=== PATIENT | male | born 1945 | race Caucasian/White ===

== ENCOUNTER → 2016-08-25 | Outpatient (CLI) | payer MEDICARE ==
--- NOTE | 2016-08-25 13:13 | XR ---
EXAMINATION TYPE: XR chest 2V DATE OF EXAM: 08/25/2016 12:54 PM HISTORY: Shortness of breath. COMPARISON: 08/26/2015 TECHNIQUE: Single view of the chest is submitted. FINDINGS: Demonstrated are scattered senescent parenchymal change. There is no evidence for focal infiltrate. The heart is stable. Hilar and mediastinal structures are within normal limits. Degenerative changes are seen of the dorsal spine. IMPRESSION: 1. Chronic changes without evidence for acute pulmonary disease.
== END | disposition home or self-care (01) ==
LOC: RADXRMAIN 12:39
PROVIDERS: ATTEND Family Medicine
DX: R05 Cough (principal)
CPT/HCPCS: 71020

== ENCOUNTER 2018-10-03 01:50 | Emergency (ER) | payer MEDICARE ==
[2018-10-03 02:00] VITALS: BP 163/72; PULSE 68; RESP 18; TEMP 97.8
[2018-10-03] MEDS ORDERED: LIDOCAINE 1%-EPI 1:100,000 20 ML VIAL SQ STA (02:50)
--- NOTE | 2018-10-03 03:00 | ED ---
General Adult HPI - General Chief complaint: Wound/Laceration Stated complaint: Leg wound Time Seen by Provider: 10/03/18 02:20 Source: patient, family, RN notes reviewed, old records reviewed Mode of arrival: ambulatory Limitations: no limitations - History of Present Illness Initial comments: 72-year-old male patient with past history of type 2 diabetes, hypertension, hyperlipidemia, not on any blood thinners. This ED for bleeding of right ankle. Patient reports that he was picking at a scab by a varicose vein. Patient reports that he then began bleeding which was difficult to control. Patient denies any other complaints this time. Patient denies any chest pain, abdominal pain, nausea vomiting or diarrhea. Systemic: Pt denies fatigue, myalgia, fever/chills, rash. Pt denies weakness, night sweats, weight loss. Neuro: Pt denies headache, visual disturbances, syncope or pre-syncope. HEENT: Pt denies ocular discharge or irritation, otalgia, rhinorrhea, pharyngitis or notable lymphadenopathy. Cardiopulmonary: Pt denies chest pain, SOB, heart palpitations, dyspnea on exertion. Abdominal/GI: Pt denies abdominal pain, n/v/d. : Pt denies dysuria, burning w/ urination, frequency/urgency. Denies new onset urinary or bowel incontinence. MSK: Pt denies myalgia, loss of strength or function in extremities. Neuro: Pt denies new onset weakness, paresthesias. - Related Data Home Medications Medication Instructions Recorded Confirmed Aspirin [Adult Low Dose Aspirin EC] 81 mg PO DAILY 02/23/17 04/18/17 Atenolol [Tenormin] 25 mg PO DAILY 02/23/17 04/18/17 Ergocalciferol (Vitamin D2) 50,000 unit PO SUWE 02/23/17 04/18/17 [Vitamin D2] Fenofibrate Nanocrystallized 145 mg PO DAILY 02/23/17 04/18/17 [Fenofibrate] Hydrochlorothiazide [Hydrodiuril] 25 mg PO W/SUPPER 02/23/17 04/18/17 Magnesium Oxide 400 mg PO DAILY 02/23/17 04/18/17 Pravastatin Sodium [Pravachol] 20 mg PO W/SUPPER 02/23/17 04/18/17 amLODIPine BESYLATE/BENAZEPRIL 1 cap PO DAILY 02/23/17 04/18/17 [Lotrel 5-20 mg Capsule] glipiZIDE [Glucotrol] 2.5 mg PO W/SUPPER 02/23/17 04/18/17 metFORMIN HCL 1,000 mg PO W/SUPPER 02/23/17 04/18/17 Allergies Allergy/AdvReac Type Severity Reaction Status Date / Time No Known Allergies Allergy Verified 10/03/18 02:00 Review of Systems ROS Statement: Those systems with pertinent positive or pertinent negative responses have been documented in the HPI. ROS Other: All systems not noted in ROS Statement are negative. Past Medical History Past Medical History: Cancer, Diabetes Mellitus, GERD/Reflux, Hyperlipidemia, Hypertension Additional Past Medical History / Comment(s): varicose veins, "takes long time for food to go down", hx kidney stone, hx skin cancer History of Any Multi-Drug Resistant Organisms: None Reported Past Surgical History: Bariatric Surgery, Hernia Repair, Orthopedic Surgery Additional Past Surgical History / Comment(s): abdominal surgery as , lap band, removal of large kidney stone, skin cancer removed from face, left knee surgery Past Anesthesia/Blood Transfusion Reactions: No Reported Reaction Past Psychological History: No Psychological Hx Reported Smoking Status: Former smoker Past Alcohol Use History: None Reported Past Drug Use History: None Reported - Past Family History Mother Family Medical History: No Reported History General Exam - General Exam Comments Initial Comments: Constitutional: NAD, AOX3, Pt has pleasant affect. HEENT: NC/AT, trachea midline, neck supple, no lymphadenopathy. Posterior pharynx non erythematous, without exudates. External ears appear normal, without discharge. Mucous membranes moist. Eyes PERRLA, EOM intact. There is no scleral icterus. No pallor noted. Cardiopulmonary: RRR, no murmurs, rubs or gallops, no JVD noted. Lungs CTAB in anterior and posterior banuelos. No peripheral edema. Abdominal exam: Abdomen soft and non-distended. Abdomen non-tender to palpation in all 4 quadrants. Bowel sounds active in LLQ. No hepatosplenomegaly. No ecchymosis Neuro: CN II-XII grossly intact. No nuchal rigidity. MSK: Varicose vein bleeding in right medial ankle. Approximated with figure eight suture. No posterior calf tenderness bilaterally, homans sign negative bilaterally. Posterior tibialis and radial pulse +2 bilaterally. Sensation intact in upper and lower extremities. Full active ROM in upper and lower extremities, 5/5 stregnth. Limitations: no limitations Course Vital Signs 10/03/18 01:56 Temperature 97.8 F Pulse Rate 68 Respiratory 18 Rate Blood Pressure 163/72 O2 Sat by Pulse 96 Oximetry Medical Decision Making - Medical Decision Making 72-year-old male patient with past history of type 2 diabetes, hypertension, hyperlipidemia, not on any blood thinners. This ED for bleeding of right ankle. Patient reports that he was picking at a scab by a varicose vein. Patient reports that he then began bleeding which was difficult to control. Patient denies any other complaints this time. Patient denies any chest pain, abdominal pain, nausea vomiting or diarrhea. Pt VSS, afebrile. Physical exam displayed: Varicose vein bleeding in right medial ankle. Approximated with figure eight suture. Patient return in 5-7 days for suture removal. Patient will return to ER if condition worsens in anyway. Case discussed with and pt seen by Dr. Morelos. Disposition Clinical Impression: Laceration Disposition: HOME SELF-CARE Condition: Stable Instructions (If sedation given, give patient instructions): Care For Your Stitches (ED) Additional Instructions: Patient to adhere to previously discussed treatment plan and will take medication(s) as directed. Patient to follow up with PCP in 1-2 days. Patient to return to ED if symptoms do not improve. Please return for suture removal: 5-7 days Please monitor for signs and symptoms of infection including: redness, warmth, drainage, discharge. Please return to ED if these signs or symptoms occur, new signs or symptoms develop or if condition worsens in anyway. Is patient prescribed a controlled substance at d/c from ED?: No Referrals: Spencer Mortensen DO [Primary Care Provider] - 1-2 days
--- NOTE | 2018-10-04 02:50 | CDI ---
Documentation Clarification OP Dear Jaspal CORNEJO, PAC, please do the addendum for laceration procedure.Please include the length and depth of the repair. Thank you, Flor Hoffman [employer]k Plant Agent If you have any question, Please contact staffing manager at [phone] [facility]
--- NOTE | 2018-10-23 18:11 | ED ---
Disposition Clinical Impression: Laceration Disposition: HOME SELF-CARE Condition: Stable Instructions (If sedation given, give patient instructions): Care For Your Stitches (ED) Additional Instructions: Patient to adhere to previously discussed treatment plan and will take medication(s) as directed. Patient to follow up with PCP in 1-2 days. Patient to return to ED if symptoms do not improve. Please return for suture removal: 5-7 days Please monitor for signs and symptoms of infection including: redness, warmth, drainage, discharge. Please return to ED if these signs or symptoms occur, new signs or symptoms develop or if condition worsens in anyway. Is patient prescribed a controlled substance at d/c from ED?: No Referrals: Spencer Mortensen DO [Primary Care Provider] - 1-2 days Procedures - Laceration Laceration #1 Consent Obtained: verbal consent Indication: laceration Site: other (R ankle) Size (cm): 0 (vericose vein ) Description: linear Depth: simple, single layer Anesthetic Used: lidocaine 1% Anesthesia Technique: local infiltration Amount (mls): 2 Pre-repair: irrigated extensively Type of Sutures: nylon Size of Sutures: 5-0 Number of Sutures: 1 Technique: other (figure 8) Patient Tolerated Procedure: well, no complications
== END 2018-10-03 04:17 | disposition home or self-care (01) ==
LOC: EC 01:50
DX: S91.011A Laceration without foreign body, right ankle, initial encounter (principal); E11.9 Type 2 diabetes mellitus without complications; K21.9 Gastro-esophageal reflux disease without esophagitis; E78.5 Hyperlipidemia, unspecified; I10 Essential (primary) hypertension; Z85.828 Personal history of other malignant neoplasm of skin; Z87.891 Personal history of nicotine dependence; Z79.84 Long term (current) use of oral hypoglycemic drugs; Z79.82 Long term (current) use of aspirin; Z79.899 Other long term (current) drug therapy; X58.XXXA Exposure to other specified factors, initial encounter
CPT/HCPCS: 12001; 99283

== ENCOUNTER 2019-02-06 07:53 | Day surgery (SDC) | payer MEDICARE ==
[2019-02-02 10:48] VITALS: BMI 37.3
[~2019-02-06 07:53] MED LIST: ALPRAZolam 0.25 MG TAB PO PRN; ALPRAZolam 0.5 MG TAB PO PRN; ASPIRIN 325 MG TAB PO ONE; ATORVASTATIN 80 MG TAB PO ONE; NITROGLYCERIN SL TABS 0.4 MG TAB SUBLINGUAL PRN; SODIUM CHLORIDE 0.9% 1,000 ML in EMPTY BAG 1 BAG IV ONE
[2019-02-06 08:27] LABS: Glucose,Whole Blood 213 mg/dL (75-99)
[2019-02-06] MEDS ORDERED: SODIUM CHLORIDE 0.9% 1,000 ML IV ONE (08:27)
[2019-02-06 08:34] VITALS: TEMP 97.8
[2019-02-06] MEDS ORDERED: LIDOCAINE 1% INJ 10MG/ML (20 ML MDV) ONE (09:03)
[2019-02-06] MEDS ORDERED: VERAPAMIL 2.5 MG/ML 2 ML AMP ONE (09:04)
[2019-02-06] MEDS ORDERED: HEPARIN SODIUM 1,000 UN/ML (10ML VL) ONE (09:04)
[2019-02-06] MEDS ORDERED: MIDAZOLAM PF (FBP) 2 MG/2 ML VIAL IV ONE (09:20)
[2019-02-06] MEDS ORDERED: LIDOCAINE 1% INJ 10MG/ML (20 ML MDV) SQ ONE (09:24)
[2019-02-06] MEDS: VERAPAMIL SYRINGE (5 MG/10 ML) INTRAARTER ONE ×2 (09:27→09:42)
[2019-02-06] MEDS ORDERED: IOPAMIDOL-370 100ML BTL INJ ONE (09:43)
[2019-02-06 10:03] LABS: Glucose,Whole Blood 163 mg/dL (75-99)
[2019-02-06] MEDS ORDERED: SODIUM CHLORIDE 0.9% 1,000 ML IV SCH (10:30)
[2019-02-06 10:35] VITALS: RESP 16
[2019-02-06 16:30] VITALS: BP 144/65; PULSE 56
[2019-02-06] MEDS ORDERED: PRAVASTATIN SODIUM 20 MG TAB PO SCH (17:30)
[2019-02-06] MEDS ORDERED: glipiZIDE 5 MG TAB PO SCH (17:30)
[2019-02-06] MEDS ORDERED: NON FORMULARY DRUG (Metformin Hcl [Metformin Hcl] 1,000 MG) PO SCH (21:00)
[2019-02-07] MEDS ORDERED: HYDROCHLOROTHIAZIDE 25 MG TAB PO SCH (09:00)
[2019-02-07] MEDS ORDERED: PIOGLITAZONE 30 MG TAB PO SCH (09:00)
[2019-02-07] MEDS ORDERED: ERGOCALCIFEROL 50,000 UNIT CAP PO SCH (09:00)
[2019-02-07] MEDS ORDERED: TAMSULOSIN 0.4 MG CAP.ER.24H PO SCH (09:00)
[2019-02-07] MEDS ORDERED: amLODIPine 5 MG TAB PO SCH (09:00)
[2019-02-07] MEDS ORDERED: ASPIRIN 81 MG PO SCH (09:00)
[2019-02-07] MEDS ORDERED: FENOFIBRATE 160 MG TAB PO SCH (09:00)
[2019-02-07] MEDS ORDERED: LISINOPRIL 20 MG TAB PO SCH (09:00)
[2019-02-08] MEDS ORDERED: MAGNESIUM OXIDE 400 MG TAB PO SCH (09:00)
--- NOTE | 2019-02-14 12:30 | CC ---
CARDIAC CATHETERIZATION REPORT DATE OF SERVICE: 02/06/2019 PROCEDURE: Coronary angiography. PERFORMED BY: Dr. Freddy Akins SEDATION: Moderate conscious sedation time was 19 minutes. Patient was administered Versed. Oxygen saturation, hemodynamics and EKG were monitored closely. CLINICAL INFORMATION: Mr. Festus Lopez is a 73-year-old gentleman, history of obesity, hypertension, type 2 diabetes, hyperlipidemia with recent abnormal stress test. He was advised cardiac catheterization after due discussion regarding risks, benefits, and options. PROCEDURE NOTE: Under local anesthesia and strict aseptic precautions, a 6-Mohawk introducer was placed in the right radial artery. Using JR4 and JL3.5 catheters, I performed selective coronary angiography. I made an attempt with a pigtail catheter to cross the aortic valve but because of some tortuosity, it was unsuccessful. Therefore, the catheter and sheath were taken out and TR band applied as per protocol and patient was sent to the room in a stable condition. Saturation in the fingers of the right hand was more than 90% at the end of the procedure. Patient tolerated the procedure well. There were no complications. CORONARY ANGIOGRAPHY FINDINGS: RIGHT CORONARY ARTERY: Technically a large dominant vessel, has no significant disease, distally bifurcates into a large PLV, smaller PDA. No significant disease in the dominant RCA. LEFT MAIN CORONARY ARTERY: Short, patent, disease-free vessel that bifurcates into LAD and circumflex. LEFT ANTERIOR DESCENDING CORONARY ARTERY: Good caliber vessel extends along the anterior wall. It gives off a good-sized diagonal branch proximally, there is about a 40% narrowing in the mid LAD after another septal branch, but no significant disease is noted. There is mild to moderate calcification. Overall, the LAD is generally free of significant disease. LEFT POSTERIOR CIRCUMFLEX CORONARY ARTERY: Technically, this is a nondominant vessel, gives off an obtuse marginal branch that runs laterally. This obtuse marginal branch has minor irregularities. no significant disease distally. There is also an AV groove branch that is free of significant disease. There is a mid lesion in the circumflex marginal of about 35%, but no significant disease is noted. FINAL IMPRESSION: This patient has a right dominant system, has about a 35% stenosis in the mid LAD and mid circumflex marginal. RCA is free of significant disease. LV pressures were not checked. RECOMMENDATIONS: Findings were discussed with the patient and family. Continued medical therapy with risk factor modification advised. Stress test was probably a false positive. I expect patient to be discharged today. MMEDDIEL / IJN: [id number] /
== END 2019-02-06 17:08 | disposition home or self-care (01) ==
LOC: CATHCVL 07:53
PROVIDERS: ATTEND Internal Medicine Interventional Cardiology
DX: I25.110 Atherosclerotic heart disease of native coronary artery with unstable angina pectoris (principal); Q25.46 Tortuous aortic arch; I10 Essential (primary) hypertension; R00.1 Bradycardia, unspecified; E78.5 Hyperlipidemia, unspecified; E11.9 Type 2 diabetes mellitus without complications; Z72.0 Tobacco use; E78.00 Pure hypercholesterolemia, unspecified; I25.10 Atherosclerotic heart disease of native coronary artery without angina pectoris; Z79.84 Long term (current) use of oral hypoglycemic drugs; Z79.82 Long term (current) use of aspirin; Z79.899 Other long term (current) drug therapy
CPT/HCPCS: 93458; C1769; C1894; J2001; J1644; Q9967; J2250

== ENCOUNTER 2019-12-25 15:52 | Emergency (ER) | payer MEDICARE ==
[2019-12-25 16:08] VITALS: RESP 18
[2019-12-25] MEDS ORDERED: LIDOCAINE 1%-EPI 1:100,000 20 ML VIAL SQ STA (16:21)
[2019-12-25] MEDS ORDERED: GELATIN SPONGE,ABSORB (SMALL) 1 EACH SPONGE TOPICAL STA (16:39)
--- NOTE | 2019-12-25 17:14 | ED ---
Wound/Laceration HPI - General Chief Complaint: Wound/Laceration Stated Complaint: Blister burst Time Seen by Provider: 12/25/19 16:18 Source: patient Mode of arrival: wheelchair Limitations: no limitations - History of Present Illness Initial Comments: 74-year-old male presents for lacerated varicose vein. Patient states that he frequently bumps his varicose veins and bleeds. He states that this has been over the 10th time. Patient states he has seen a venous specialist in the past her patient states he nicked a vein to walk around the garage he states his bleeding his was used to this applied a pressor bandage and presented Patti Ryder for further evaluation. Patient states he is on anticoagulation therapy. Denies falls, additional complaints. Denies headedness dizziness presyncope or syncope. Patient appears well and arrival pressure bandage in place - Related Data Home Medications Medication Instructions Recorded Confirmed Aspirin [Adult Low Dose Aspirin EC] 81 mg PO DAILY 02/23/17 02/06/19 Ergocalciferol (Vitamin D2) 50,000 unit PO SUWE 02/23/17 02/06/19 [Vitamin D2] Fenofibrate Nanocrystallized 145 mg PO DAILY 02/23/17 02/06/19 [Fenofibrate] Magnesium Oxide 400 mg PO QAM 02/23/17 02/06/19 Pravastatin Sodium [Pravachol] 40 mg PO W/SUPPER 02/23/17 02/06/19 amLODIPine BESYLATE/BENAZEPRIL 1 cap PO DAILY 02/23/17 02/06/19 [Lotrel 5-20 mg Capsule] glipiZIDE [Glucotrol] 5 mg PO W/SUPPER 02/23/17 02/06/19 hydroCHLOROthiazide [Hydrodiuril] 25 mg PO DAILY 02/23/17 02/06/19 metFORMIN HCL 1,000 mg PO BID 02/23/17 02/06/19 Metoprolol Tartrate [Lopressor] 12.5 mg PO BID 02/02/19 02/06/19 Pioglitazone [Actos] 30 mg PO DAILY 02/02/19 02/06/19 Tamsulosin [Flomax] 0.4 mg PO DAILY 02/02/19 02/06/19 Previous Rx's Medication Instructions Recorded Cephalexin [Keflex] 500 mg PO Q6HR 3 Days #12 cap 12/25/19 Cephalexin [Keflex] 500 mg PO Q6HR 3 Days #12 cap 12/25/19 Allergies Allergy/AdvReac Type Severity Reaction Status Date / Time No Known Allergies Allergy Verified 02/06/19 08:05 Review of Systems ROS Statement: Those systems with pertinent positive or pertinent negative responses have been documented in the HPI. ROS Other: All systems not noted in ROS Statement are negative. Past Medical History Past Medical History: Cancer, Diabetes Mellitus, Hyperlipidemia, Hypertension, Prostate Disorder Additional Past Medical History / Comment(s): Varicose veins, "slow eater since Lap Band surgery", hx kidney stone, hx skin cancer, enlarged prostate, hard of hearing. History of Any Multi-Drug Resistant Organisms: None Reported Past Surgical History: Bariatric Surgery, Heart Catheterization, Hernia Repair, Orthopedic Surgery Additional Past Surgical History / Comment(s): Abdominal surgery as , lap band, removal of large kidney stone, skin cancer removed from face, left knee surgery. Past Anesthesia/Blood Transfusion Reactions: No Reported Reaction Past Psychological History: No Psychological Hx Reported Smoking Status: Former smoker Past Alcohol Use History: None Reported Past Drug Use History: None Reported - Past Family History Mother Family Medical History: No Reported History General Exam - General Exam Comments Initial Comments: General: The patient is awake and alert, in no distress, and does not appear acutely ill. Eye: +3 mm pupils are equal, round and reactive to light, extra-ocular movements are intact. No nystagmus. There is normal conjunctiva bilaterally. No signs of icterus. Cardiovascular: There is a regular rate and rhythm. No murmur, rub or gallop is appreciated. Respiratory: Lungs are clear to auscultation, respirations are non-labored, breath sounds are equal. No wheezes, stridor, rales, or rhonchi. Musculoskeletal: Normal ROM, no tenderness. Strength 5/5. Sensation intact. Radial pulses equal bilaterally 2+. Neurological: A&O x 3. CN II-XII intact grossly, There are no obvious motor or sensory deficits. Coordination appears grossly intact. Speech is normal. Skin: Skin is warm and dry and no rashes or lesions are noted. Right lower leg, varicose bein with pinpoint open area with blood flowing from area once the bandage removed. No large lacerations. Psychiatric: Cooperative, appropriate mood & affect, normal judgment. Limitations: no limitations Course Vital Signs 12/25/19 12/25/19 16:04 17:30 Temperature 98.3 F 98.0 F Pulse Rate 74 77 Respiratory 18 18 Rate Blood Pressure 162/80 156/80 O2 Sat by Pulse 96 96 Oximetry Procedures - Laceration Laceration #1 Consent Obtained: verbal consent Indication: other (varicose vein ) Site: other (nellie) Anesthetic Used: lidocaine 1%, with epi Anesthesia Technique: local infiltration (2ml) Amount (mls): 2 Size of Sutures: 4-0 Number of Sutures: 3 (2 figure 8 sutures ) Technique: other (figure 8) Patient Tolerated Procedure: well, no complications Medical Decision Making - Medical Decision Making 74-year-old male presented for bleeding varicose pain history of hitting veins and having bleed small pinpoint area 3 figure 8 sutures were used to ligate the vessel as well as lidocaine and epinephrine bleeding controlled. Bandage placed. Asymptomatic. Return prefers discussed patient discharged appearing well Disposition Clinical Impression: Varicose vein of leg, Puncture wound Disposition: HOME SELF-CARE Condition: Good Instructions (If sedation given, give patient instructions): Care For Your Stitches (ED) Additional Instructions: Please use medication as discussed. Please follow-up with family doctor in the next 2 days of symptoms. Please return to emergency room if the symptoms increase or worsen or for any other concerns. Prescriptions: Cephalexin [Keflex] 500 mg PO Q6HR 3 Days #12 cap Cephalexin [Keflex] 500 mg PO Q6HR 3 Days #12 cap Is patient prescribed a controlled substance at d/c from ED?: No Referrals: Spencer Mortensen DO [Primary Care Provider] - 1-2 days Time of Disposition: 17:14
[2019-12-25 17:31] VITALS: BP 156/80; PULSE 77; TEMP 98
== END 2019-12-25 17:31 | disposition home or self-care (01) ==
LOC: EC 15:52
DX: S81.831A Puncture wound without foreign body, right lower leg, initial encounter (principal); I83.891 Varicose veins of right lower extremity with other complications; I10 Essential (primary) hypertension; E11.9 Type 2 diabetes mellitus without complications; E78.5 Hyperlipidemia, unspecified; N42.9 Disorder of prostate, unspecified; Z79.4 Long term (current) use of insulin; Z79.82 Long term (current) use of aspirin; Z79.84 Long term (current) use of oral hypoglycemic drugs; Z79.01 Long term (current) use of anticoagulants; Z79.899 Other long term (current) drug therapy; Z85.828 Personal history of other malignant neoplasm of skin; Z87.891 Personal history of nicotine dependence; Z98.890 Other specified postprocedural states; Y92.89 Other specified places as the place of occurrence of the external cause
CPT/HCPCS: 12001; 99283

== ENCOUNTER 2021-01-05 10:28 | Emergency (ER) | payer MEDICARE ==
[2021-01-05 10:35] VITALS: BP 136/70; PULSE 85; RESP 18; TEMP 98
[2021-01-05] MEDS ORDERED: TOPICAL SKIN ADHESIVE 1 EACH AMP TOPICAL ONE (11:09)
[2021-01-05] MEDS ORDERED: GELATIN SPONGE,ABSORB (SMALL) 1 EACH SPONGE TOPICAL STA (11:09)
--- NOTE | 2021-01-05 11:49 | ED ---
General Adult HPI - General Chief complaint: Skin/Abscess/Foreign Body Stated complaint: ankle/vein bleeding Time Seen by Provider: 01/05/21 10:49 Source: patient, family, RN notes reviewed Mode of arrival: ambulatory Limitations: no limitations - History of Present Illness Initial comments: 75-year-old male presents to the emergency room for bleeding varicose vein on the right leg. Patient was getting gel wiped off from an ultrasound earlier and started to have bleeding out of the varicose vein. The wound was wrapped with a pressure wrapping and patient then presents to the emergency room. Patient denies any other injuries. States this has happened before.Patient has no other complaints at this time including shortness of breath, chest pain, abdominal pain, nausea or vomiting, headache, or visual changes. - Related Data Home Medications Medication Instructions Recorded Confirmed Aspirin [Adult Low Dose Aspirin EC] 81 mg PO DAILY 02/23/17 02/06/19 Ergocalciferol (Vitamin D2) 50,000 unit PO SUWE 02/23/17 02/06/19 [Vitamin D2] Fenofibrate Nanocrystallized 145 mg PO DAILY 02/23/17 02/06/19 [Fenofibrate] Magnesium Oxide 400 mg PO QAM 02/23/17 02/06/19 Pravastatin Sodium [Pravachol] 40 mg PO W/SUPPER 02/23/17 02/06/19 amLODIPine BESYLATE/BENAZEPRIL 1 cap PO DAILY 02/23/17 02/06/19 [Lotrel 5-20 mg Capsule] glipiZIDE [Glucotrol] 5 mg PO W/SUPPER 02/23/17 02/06/19 hydroCHLOROthiazide [Hydrodiuril] 25 mg PO DAILY 02/23/17 02/06/19 metFORMIN HCL [Glucophage] 1,000 mg PO BID 02/23/17 02/06/19 Metoprolol Tartrate [Lopressor] 12.5 mg PO BID 02/02/19 02/06/19 Pioglitazone [Actos] 30 mg PO DAILY 02/02/19 02/06/19 Tamsulosin [Flomax] 0.4 mg PO DAILY 02/02/19 02/06/19 Previous Rx's Medication Instructions Recorded Cephalexin [Keflex] 500 mg PO Q6HR 3 Days #12 cap 12/25/19 Cephalexin [Keflex] 500 mg PO Q6HR 3 Days #12 cap 12/25/19 Allergies Allergy/AdvReac Type Severity Reaction Status Date / Time No Known Allergies Allergy Verified 01/05/21 10:35 Review of Systems ROS Statement: Those systems with pertinent positive or pertinent negative responses have been documented in the HPI. ROS Other: All systems not noted in ROS Statement are negative. Past Medical History Past Medical History: Cancer, Diabetes Mellitus, Hyperlipidemia, Hypertension, Prostate Disorder Additional Past Medical History / Comment(s): Varicose veins, "slow eater since Lap Band surgery", hx kidney stone, hx skin cancer, enlarged prostate, hard of hearing. History of Any Multi-Drug Resistant Organisms: None Reported Past Surgical History: Bariatric Surgery, Heart Catheterization, Hernia Repair, Orthopedic Surgery Additional Past Surgical History / Comment(s): Abdominal surgery as infant, lap band, removal of large kidney stone, skin cancer removed from face, left knee surgery. Past Anesthesia/Blood Transfusion Reactions: No Reported Reaction Past Psychological History: No Psychological Hx Reported Smoking Status: Former smoker Past Alcohol Use History: None Reported Past Drug Use History: None Reported - Past Family History Mother Family Medical History: No Reported History General Exam Limitations: no limitations General appearance: alert, in no apparent distress Head exam: Present: atraumatic Eye exam: Present: normal appearance, PERRL, EOMI. Absent: scleral icterus ENT exam: Present: normal exam, mucous membranes moist Neck exam: Present: normal inspection, full ROM. Absent: tenderness Respiratory exam: Present: normal lung sounds bilaterally. Absent: respiratory distress, wheezes Cardiovascular Exam: Present: regular rate, normal rhythm, normal heart sounds Extremities exam: Present: other (Patient has a varicose vein noted on the right medial ankle. Hemostasis is achieved.) Course Vital Signs 01/05/21 10:29 Temperature 98.0 F Pulse Rate 85 Respiratory 18 Rate Blood Pressure 136/70 O2 Sat by Pulse 96 Oximetry Medical Decision Making - Medical Decision Making hemostasis achieved. Exofin was used to seal pain and ensure no additional bleeding starts. Wound was then wrapped. Patient was sent home with Gelfoam in case of any rebleed. Patient will follow up with his doctor and return for any worsening symptoms. Disposition Clinical Impression: Bleeding from varicose vein Disposition: HOME SELF-CARE Condition: Good Instructions (If sedation given, give patient instructions): Skin Adhesive Care (ED) Additional Instructions: Please follow-up with your doctor in one to 2 days. Return to the emergency room for any worsening symptoms. Is patient prescribed a controlled substance at d/c from ED?: No Referrals: Spencer Mortensen DO [Primary Care Provider] - 1-2 days Time of Disposition: 11:48
== END 2021-01-05 11:57 | disposition home or self-care (01) ==
LOC: EC 10:28
DX: I83.891 Varicose veins of right lower extremity with other complications (principal); E11.9 Type 2 diabetes mellitus without complications; I10 Essential (primary) hypertension; E78.5 Hyperlipidemia, unspecified; Z87.891 Personal history of nicotine dependence; Z79.84 Long term (current) use of oral hypoglycemic drugs; Z79.82 Long term (current) use of aspirin; Z79.899 Other long term (current) drug therapy
CPT/HCPCS: 99283

== ENCOUNTER 2021-01-17 06:08 | Emergency (ER) | payer MEDICARE ==
[2021-01-17 06:14] VITALS: BP 191/64; PULSE 47; RESP 20; TEMP 97.9
[2021-01-17] MEDS ORDERED: LIDOCAINE/EPINEPHR/TETRACAINE 5 ML BOTTLE TOPICAL ONE (06:29)
--- NOTE | 2021-01-17 07:03 | ED ---
General Adult HPI - General Chief complaint: Extremity Injury, Lower Stated complaint: DVT Time Seen by Provider: 01/17/21 06:15 Source: patient, family, RN notes reviewed Mode of arrival: ambulatory Limitations: no limitations - History of Present Illness Initial comments: 75-year-old male presents emergency Department with chief complaint of bleeding from varicose vein on the right ankle. Patient states she's had this recurrent issue. He states she's had multiple procedures done he does see vascular surgery. Patient attempted to call but they were not in office. Patient denies any complaints. Pressure was applied bleeding is controlled. - Related Data Home Medications Medication Instructions Recorded Confirmed Aspirin [Adult Low Dose Aspirin EC] 81 mg PO DAILY 02/23/17 02/06/19 Ergocalciferol (Vitamin D2) 50,000 unit PO SUWE 02/23/17 02/06/19 [Vitamin D2] Fenofibrate Nanocrystallized 145 mg PO DAILY 02/23/17 02/06/19 [Fenofibrate] Magnesium Oxide 400 mg PO QAM 02/23/17 02/06/19 Pravastatin Sodium [Pravachol] 40 mg PO W/SUPPER 02/23/17 02/06/19 amLODIPine BESYLATE/BENAZEPRIL 1 cap PO DAILY 02/23/17 02/06/19 [Lotrel 5-20 mg Capsule] glipiZIDE [Glucotrol] 5 mg PO W/SUPPER 02/23/17 02/06/19 hydroCHLOROthiazide [Hydrodiuril] 25 mg PO DAILY 02/23/17 02/06/19 metFORMIN HCL [Glucophage] 1,000 mg PO BID 02/23/17 02/06/19 Metoprolol Tartrate [Lopressor] 12.5 mg PO BID 02/02/19 02/06/19 Pioglitazone [Actos] 30 mg PO DAILY 02/02/19 02/06/19 Tamsulosin [Flomax] 0.4 mg PO DAILY 02/02/19 02/06/19 Previous Rx's Medication Instructions Recorded Cephalexin [Keflex] 500 mg PO Q6HR 3 Days #12 cap 12/25/19 Cephalexin [Keflex] 500 mg PO Q6HR 3 Days #12 cap 12/25/19 Allergies Allergy/AdvReac Type Severity Reaction Status Date / Time No Known Allergies Allergy Verified 01/17/21 06:14 Review of Systems ROS Statement: Those systems with pertinent positive or pertinent negative responses have been documented in the HPI. ROS Other: All systems not noted in ROS Statement are negative. Past Medical History Past Medical History: Cancer, Diabetes Mellitus, Hyperlipidemia, Hypertension, Prostate Disorder Additional Past Medical History / Comment(s): Varicose veins, "slow eater since Lap Band surgery", hx kidney stone, hx skin cancer, enlarged prostate, hard of h earing. History of Any Multi-Drug Resistant Organisms: None Reported Past Surgical History: Bariatric Surgery, Heart Catheterization, Hernia Repair, Orthopedic Surgery Additional Past Surgical History / Comment(s): Abdominal surgery as infant, lap band, removal of large kidney stone, skin cancer removed from face, left knee surgery. Past Anesthesia/Blood Transfusion Reactions: No Reported Reaction Past Psychological History: No Psychological Hx Reported Smoking Status: Former smoker Past Alcohol Use History: None Reported Past Drug Use History: None Reported - Past Family History Mother Family Medical History: No Reported History General Exam Limitations: no limitations General appearance: alert, in no apparent distress Respiratory exam: Present: normal lung sounds bilaterally. Absent: respiratory distress, wheezes, rales, rhonchi, stridor Cardiovascular Exam: Present: regular rate, normal rhythm, normal heart sounds. Absent: systolic murmur, diastolic murmur, rubs, gallop, clicks Extremities exam: Present: other (Multiple lower extremity varicosities noted, there is dry blood noted the right foot and ankle there is no active bleeding) Skin exam: Present: warm, dry, intact, normal color. Absent: rash Course Vital Signs 01/17/21 06:09 Temperature 97.9 F Pulse Rate 47 L Respiratory 20 Rate Blood Pressure 191/64 O2 Sat by Pulse 98 Oximetry Medical Decision Making - Medical Decision Making 75-year-old presented for ruptured varicose vein. There is no active bleeding upon arrival. Patient was observed with no rebleeding patient did have pressure wrap applied, patient does have some excellent glue placed over for a cap Disposition Clinical Impression: Bleeding from varicose vein Disposition: HOME SELF-CARE Condition: Stable Instructions (If sedation given, give patient instructions): Venous Insufficiency (DC) Additional Instructions: Please return to the Emergency Department if symptoms worsen or any other concerns. Is patient prescribed a controlled substance at d/c from ED?: No Referrals: Spencer Mortensen DO [Primary Care Provider] - 1-2 days May Wilkins DO [STAFF PHYSICIAN] - 1-2 days Time of Disposition: 07:33
[2021-01-17] MEDS ORDERED: TOPICAL SKIN ADHESIVE 1 EACH AMP TOPICAL ONE (07:10)
== END 2021-01-17 07:53 | disposition home or self-care (01) ==
LOC: EC 06:08
DX: I83.891 Varicose veins of right lower extremity with other complications (principal); E11.9 Type 2 diabetes mellitus without complications; I10 Essential (primary) hypertension; E78.5 Hyperlipidemia, unspecified; Z79.84 Long term (current) use of oral hypoglycemic drugs; Z79.82 Long term (current) use of aspirin; Z87.891 Personal history of nicotine dependence; Z79.899 Other long term (current) drug therapy
CPT/HCPCS: 99283